=== PATIENT | male | born 1990 | race Two or more races ===

== ENCOUNTER 2017-10-08 22:30 | Emergency (ER) | payer OTHER ==
[2017-10-09] MEDS ORDERED: NS 0.9% 1000 ML* 3,000 ML IV ONE (01:35)
[2017-10-09] MEDS ORDERED: Metoclopramide IV* 5 MG/ML 2 ML VIAL IV ONE (01:35)
[2017-10-09] MEDS ORDERED: Morphine INJ* 4 MG/ML 1 ML CARPUJECT IV ONE (01:35)
[2017-10-09] MEDS ORDERED: Acetaminophen TAB* 325 MG PO ONE (01:38)
[2017-10-09] MEDS ORDERED: Piperacillin/Tazobac ADVAN(*) 3.375 GM in NS 0.9% 100 ML* 100 ML IVPB ONE (01:38)
[2017-10-09 02:39] LABS: ABS Basophils 0 10^3/ul (0-0.2); ABS Eosinophils 0.1 10^3/ul (0-0.6); ABS Lymphocytes 1.7 10^3/ul (1.0-4.8); ABS Monocytes 0.8 10^3/ul (0-0.8); ABS Neutrophils 10.3 10^3/ul (1.5-7.7); ABS Nucleated RBC 0 10^3/ul; Eosinophil % 0.4 % (0-6); Hematocrit 46 % (42-52); Hemoglobin 15.7 g/dl (14.0-18.0); Lymphocyte % 13.3 % (25-47); Mean Corpuscular HGB Conc 34 g/dl (31-36); Mean Corpuscular Hemoglobin 31 pg (27-31); Mean Corpuscular Volume 90 fL (80-94); Mean Platelet Volume 10 um3 (7.4-10.4); Nucleated Red Blood Cells % 0; Platelet Count 210 10^3/ul (150-450); Red Blood Count 5.12 10^6/ul (4.0-5.4); Red Cell Distribution Width 15 % (10.5-15)
[2017-10-09 02:40] LABS: Urine Appearance Clear; Urine Blood Negative (Negative); Urine Color Straw; Urine Ketones 2+ (Negative); Urine Protein Negative (Negative); Urine Specific Gravity 1.006 (1.010-1.030); Urine Urobilinogen Negative (Negative)
[2017-10-09] MEDS ORDERED: Iohexol 300* (CONTRAST) 10 ML SDV IV ONE (03:37)
[2017-10-09 05:26] VITALS: BP 112/65
--- NOTE | 2017-10-09 06:29 | ED ---
[place] Gabriel, scribtamara for Benjamin Harvey MD on 10/09/17 at 0159 . Abdominal Pain/Male - HPI Summary HPI Summary: This patient is a 26 year old M presenting to [facility] with a chief complaint of ABD pain since 10-05-17. The patient rates the pain 5/10 in severity. Patient reports fever at 100.4F and suprapubic pain when he pushes to urinate. Pt denies v/d. Pt was seen at PCP who said he was inflamed and was advised to drink clear liquids. Last BM was earlier today. - History of Current Complaint Chief Complaint: EDAbdPain Stated Complaint: ABD PAIN/FEVER Time Seen by Provider: 10/09/17 00:37 Hx Obtained From: Patient Onset/Duration: Lasting Days - 3, Still Present Timing: Constant Severity Initially: Moderate Severity Currently: Moderate Pain Intensity: 5 Pain Scale Used: 0-10 Numeric Location: Diffuse, Suprapubic Radiates: No Associated Signs And Symptoms: Positive: Fever. Negative: Vomiting, Diarrhea - Allergies/Home Medications Allergies/Adverse Reactions: Allergies Allergy/AdvReac Type Severity Reaction Status Date / Time No Known Allergies Allergy Verified 10/08/17 22:36 PMH/Surg Hx/FS Hx/Imm Hx Endocrine/Hematology History: Denies: Hx Blood Disorders, Hx Blood Transfusions Cardiovascular History: Denies: Hx Auto Implanted Cardiovert Defib Respiratory History: Denies: Hx Chronic Obstructive Pulmonary Disease (COPD) History: Denies: Hx Chronic Renal Failure Infectious Disease History: No Infectious Disease History: Denies: Traveled Outside the [place] in Last 30 Days - Family History Known Family History: Negative: Renal Disease, Respiratory Disease, Seizure Disorder - Social History Alcohol Use: Occasionally Substance Use Type: Reports: Marijuana Substance Use Comment - Amount & Last Used: Yesterday Smoking Status (MU): Never Smoked Tobacco Review of Systems Positive: Fever Positive: Abdominal Pain All Other Systems Reviewed And Are Negative: Yes Physical Exam - Summary Physical Exam Summary: VITAL SIGNS: Reviewed. GENERAL: Patient is a well-developed and nourished male who is lying comfortable in the stretcher. Patient is not in any acute respiratory distress. HEAD AND FACE: No signs of trauma. No ecchymosis, hematomas or skull depressions. No sinus tenderness. EYES: PERRLA, EOMI x 2, No injected conjunctiva, no nystagmus. EARS: Hearing grossly intact. Ear canals and tympanic membranes are within normal limits. MOUTH: Oropharynx within normal limits. NECK: Supple, trachea is midline, no adenopathy, no JVD, no carotid bruit, no c- spine tenderness, neck with full ROM. CHEST: Symmetric, no tenderness at palpation LUNGS: Clear to auscultation bilaterally. No wheezing or crackles. CVS: Regular rate and rhythm, S1 and S2 present, no murmurs or gallops appreciated. ABDOMEN: Soft, LLQ tenderness No signs of distention. No rebound no guarding, and no masses palpated. Bowel sounds are normal. EXTREMITIES: FROM in all major joints, no edema, no cyanosis or clubbing. NEURO: Alert and oriented x 3. No acute neurological deficits. Speech is normal and follows commands. SKIN: Dry and warm Triage Information Reviewed: Yes Vital Signs On Initial Exam: Initial Vitals Temp Pulse Resp BP Pulse Ox 99.0 F 88 16 137/72 96 10/08/17 22:32 10/08/17 22:32 10/08/17 22:32 10/08/17 22:32 10/08/17 22:32 Vital Signs Reviewed: Yes Diagnostics - Vital Signs Vital Signs Temp Pulse Resp BP Pulse Ox 10/08/17 22:32 99.0 F 88 16 137/72 96 - Laboratory Result Diagrams: 10/09/17 02:10 10/09/17 02:10 Lab Statement: Any lab studies that have been ordered have been reviewed, and results considered in the medical decision making process. - CT CT ABD/Pelvis CT Interpretation Completed By: Radiologist - , uncomplicated moderate acute sigmoid diverticulitis. ED physician has reviewed this radiology report. Abdominal Pain Fem Course/Dx - Course Assessment/Plan: This patient is a 26 year old M presenting to [facility] with a chief complaint of ABD pain since 10-05-17. The patient rates the pain 5/10 in severity. Patient reports fever at 100.4F and suprapubic pain when he pushes to urinate. Pt denies v/d. Pt was seen at PCP who said he was inflamed and was advised to drink clear liquids. Last BM was earlier today. CT ABD pelvis reveals, per radiologist, uncomplicated moderate acute sigmoid diverticulitis. Test results with no significant abnormalities. UA and bloodwork obtained. In the ED course the patient was given Reglan, Tylenol, morphine, and IV fluids. Dx diverticulitis. Patient will be discharged with prescription for oxycodone, levaquin, and flagyl and follow up from PCP. The patient is agreeable with this plan. - Diagnoses Provider Diagnoses: Diverticulitis Discharge - Discharge Plan Condition: Stable Disposition: HOME Prescriptions: Levofloxacin TAB* [Levaquin TAB*] 500 mg PO DAILY #7 tab metroNIDAZOLE [Flagyl 500 MG TAB] 500 mg PO TID #21 tab oxyCODONE/Acetamin 5/325 MG* [Percocet 5/325 TAB*] 1 tab PO Q6H PRN #14 tab MDD 4 PRN Reason: Pain Patient Education Materials: Oxycodone/Acetaminophen (By mouth), Metronidazole (By mouth), Levofloxacin (By mouth), Diverticulitis (ED) Referrals: Uma BONE,Rhea Elise [Primary Care Provider] - Additional Instructions: RETURN TO EMERGENCY DEPARTMENT FOR ANY NEW OR WORSENING SYMPTOMS The documentation as recorded by the Tio carmona Gabriel accurately reflects the service I personally performed and the decisions made by Wes dos santos Abdul, MD.
--- NOTE | 2017-10-09 08:07 | RAD ---
INDICATION: Abdominal pain. COMPARISON: Comparison is made with a prior right upper quadrant ultrasound from February 13, 2017. TECHNIQUE: A CT scan of the abdomen and pelvis was performed with intravenous and oral contrast following intravenous injection of 142 ml of Omnipaque 300 nonionic contrast. Contiguous axial sections were obtained from the lung bases through the symphysis pubis. Images were reconstructed in the coronal and sagittal planes. FINDINGS: The lung bases are clear. No pleural effusion is present. The liver is normal in size and decreased in attenuation consistent with fatty infiltration. There appears to be focal sparing in the anterior aspect of the left hepatic lobe. The spleen is mildly enlarged without focal abnormality. No calcified gallstones are seen. The pancreas appears to be within normal limits. The kidneys and adrenal glands are normal in size. No hydronephrosis is seen. No significant focal renal abnormality is seen. The aorta is normal in caliber and demonstrates homogeneous contrast opacification. No significant enlarged retroperitoneal lymph nodes are seen. The stomach, small and large bowel appear nondistended. The appendix is within normal limits. There is mild sigmoid diverticulosis. In addition there is mild thickening of the wall of the mid sigmoid colon with stranding in the adjacent mesenteric fat most consistent with diverticulitis. No abscess is seen. There is a small periumbilical hernia containing fat. There is a trace amount of free intraperitoneal fluid in the pelvis. No free intraperitoneal air is seen. No significant focal osseous abnormality is seen. IMPRESSION: 1. FINDINGS MOST CONSISTENT WITH SIGMOID DIVERTICULITIS. NO EVIDENCE FOR ABSCESS. 2. HEPATIC STEATOSIS. 3. MILD SPLENOMEGALY.
== END 2017-10-09 05:26 | disposition home or self-care (01) ==
LOC: ED 22:30
DX: K57.92 Diverticulitis of intestine, part unspecified, without perforation or abscess without bleeding (principal)
CPT/HCPCS: 36415; 74177; 80053; 81003; 82150; 83605; 83690; 83735; 85025; 86140; 99283; A9270-GY; J2270; J2543; J2765; Q9967